=== PATIENT | female | born 1990 | race Caucasian/White ===

== ENCOUNTER 2018-09-20 01:18 | Inpatient (IN) | payer SELFPAY ==
[~2018-09-20] VITALS: Ht 149.9 cm; Wt 63.5 kg
[2018-09-20 02:29] LABS: BASOPHILS % 0.2 % (0.0-2.0); EOSINOPHILS % 0.6 % (0.0-5.0); HEMATOCRIT. 35.7 % (36.0-48.0); HEMOGLOBIN. 11.8 g/dL (12.0-16.0); LYMPHOCYTES % 9.7 % (20.0-50.0); MEAN CORPUSCULAR VOLUME 84.7 fL (81.0-99.0); MEAN PLATELET VOLUME 8.7 fl (7.4-10.4); MONOCYTES % 5.6 % (2.0-8.0); NEUTROPHILS % 83.9 % (40.0-76.0); PLATELET 361 x1000/uL (130-400); RED BLOOD CELL COUNT 4.21 mill/uL (4.2-5.4); RED CELL DISTRIBUTION WIDTH 14.1 % (11.6-14.6)
[2018-09-20] MEDS ORDERED: METOCLOPRAMIDE HCL 10MG/2ML VIAL IV ONE (02:30)
[2018-09-20] MEDS ORDERED: ACETAMINOPHEN 325MG TABLET PO PRN (02:30)
[2018-09-20 02:34] LABS: CHLORIDE 103 mEq/L (98-107)
[2018-09-20 02:35] LABS: CLARITY URINE CLOUDY (CLEAR); COLOR URINE ORANGE (YELLOW); KETONES URINE NEGATIVE (NEGATIVE); LEUKOCYTE ESTERASE URINE 1+ (NEGATIVE); NITRITE URINE NEGATIVE (NEGATIVE); OCCULT BLOOD URINE 3+ (NEGATIVE); PH URINE 6.5 (4.5-8.0); PROTEIN URINE TRACE (NEGATIVE); SPECIFIC GRAVITY URINE 1.025 (1.005-1.030)
[2018-09-20 02:52] LABS: UCG SCREEN POSITIVE
[2018-09-20 02:59] LABS: B-HCG QUANTITATIVE 1123 mIU/mL (<3)
[2018-09-20] MEDS ORDERED: CEFAZOLIN 1000MG PREMIX 50 ML IV ONE (04:15)
[2018-09-20] MEDS ORDERED: SODIUM CHLORIDE 0.9% 1,000 ML IV ONE (05:15)
[2018-09-20] MEDS ORDERED: LIDOCAINE HCL/PF 1% 10 MG/ML 5ML VIAL ONE (06:16)
[2018-09-20] MEDS ORDERED: FENTANYL CITRATE/PF 50MCG/ML 2ML VIAL ONE ×3 (06:16→07:04)
[2018-09-20] MEDS ORDERED: ROCURONIUM BROMIDE 10MG/ML VIAL 5ML IV ONE (06:16)
[2018-09-20] MEDS ORDERED: SUCCINYLCHOLINE CHLORIDE 200MG/10ML IV ONE (06:16)
[2018-09-20] MEDS ORDERED: SODIUM CHLORIDE 0.9% 10ML VIAL ONE (06:16)
[2018-09-20] MEDS ORDERED: NEOSTIGMINE METHYLSULFATE 1MG/ML 10 ML VIAL ONE (06:16)
[2018-09-20] MEDS ORDERED: GLYCOPYRROLATE 0.2 MG/ML 2ML VIAL ONE (06:16)
[2018-09-20] MEDS ORDERED: PROPOFOL 200MG/20ML VIAL IV ONE (06:16)
[2018-09-20] MEDS ORDERED: MIDAZOLAM HCL 2 MG/2 ML VIAL ONE (06:16)
[2018-09-20] MEDS ORDERED: DEXAMETHASONE 4MG/ML 1ML VIAL ONE (06:17)
[2018-09-20] MEDS ORDERED: ONDANSETRON HCL 4MG/2ML INJ ONE (06:17)
[2018-09-20] MEDS ORDERED: METOCLOPRAMIDE HCL 10MG/2ML VIAL ONE (06:17)
[2018-09-20] MEDS ORDERED: VASOPRESSIN 20 UNIT/ML 1ML ONE (06:35)
[2018-09-20] MEDS ORDERED: SKIN ADHESIVE 0.7 GM EA TOP ONE (06:35)
[2018-09-20] MEDS ORDERED: NORMAL SALINE 0.9% 10 ML SYR ONE (06:35)
[2018-09-20] MEDS: SODIUM CHLORIDE 0.9% 1,000 ML IV ONE (07:17)
[2018-09-20] MEDS ORDERED: MORPHINE SULFATE 2 MG/ML CPJ (NOT FOR IM USE) IV PRN (07:30)
[2018-09-20] MEDS ORDERED: HYDROMORPHONE HCL/PF 2MG/ML CPJ IV PRN (07:30)
[2018-09-20] MEDS ORDERED: MEPERIDINE HCL/PF 25MG/ML CPJ IV PRN ×2 (07:30)
[2018-09-20] MEDS ORDERED: ONDANSETRON HCL 4MG/2ML INJ IV PRN ×2 (07:30)
[2018-09-20] MEDS ORDERED: DEXT 5%/0.45% NACL KCL 20MEQ/L 1,000 ML IV SCH (07:30)
[2018-09-20 11:43] VITALS: BP 111/72
[2018-09-20 12:00] VITALS: BP 119/79
[2018-09-20] MEDS ORDERED: HYDROCODONE/ACETAMINOPHEN 5/325MG TABLET PO PRN (16:00)
[2018-09-20] MEDS ORDERED: LACTATED RINGERS 1,000 ML IV NR (16:00)
[2018-09-20 16:10] VITALS: BP 139/100
[2018-09-20] MEDS: HYDROCODONE/ACETAMINOPHEN 10/325MG TABLET PO PRN ×2 (18:46→22:44)
[2018-09-20 20:00] VITALS: BP 109/71
[2018-09-21] VITALS: BP 108/63
[2018-09-21 04:00] VITALS: BP 98/61
[2018-09-21] MEDS: HYDROCODONE/ACETAMINOPHEN 10/325MG TABLET PO PRN ×2 (04:27→09:03)
[2018-09-21 07:42] LABS: BASOPHILS % 0.2 % (0.0-2.0); EOSINOPHILS % 0.1 % (0.0-5.0); HEMATOCRIT. 26.1 % (36.0-48.0); HEMOGLOBIN. 8.8 g/dL (12.0-16.0); LYMPHOCYTES % 17.7 % (20.0-50.0); MEAN CORPUSCULAR HEMOGLOBIN 28.3 pg (28.0-32.0); MEAN CORPUSCULAR VOLUME 83.8 fL (81.0-99.0); MEAN PLATELET VOLUME 8.7 fl (7.4-10.4); MONOCYTES % 8.5 % (2.0-8.0); NEUTROPHILS % 73.5 % (40.0-76.0); PLATELET 288 x1000/uL (130-400); RED BLOOD CELL COUNT 3.11 mill/uL (4.2-5.4); RED CELL DISTRIBUTION WIDTH 14.1 % (11.6-14.6)
[2018-09-21 08:00] VITALS: BP 95/59
[2018-09-21] MEDS: SODIUM CHLORIDE 0.9% 1,000 ML IV ONE (09:01)
[2018-09-21 12:00] VITALS: BP 108/45
[2018-09-21] MEDS: IBUPROFEN 800MG TABLET PO PRN (13:30)
[2018-09-21 16:00] VITALS: BP 104/65
[2018-09-21 20:00] VITALS: BP 121/76
[2018-09-22] VITALS: BP 104/70
[2018-09-22] MEDS: IBUPROFEN 800MG TABLET PO PRN ×2 (03:01→11:04)
[2018-09-22 04:00] VITALS: BP 108/75
[2018-09-22 06:14] LABS: CHLAMYDIA TRACHOMATIS NAA Negative (Negative); NEISSERIA GONORRHOEAE NAA Negative (Negative)
[2018-09-22 08:00] VITALS: BP 103/65
[2018-09-22 12:00] VITALS: BP 97/62
[2018-09-22 16:00] VITALS: BP 89/49
[2018-09-22 20:00] VITALS: BP 123/59
[2018-09-23] VITALS: BP 121/65
[2018-09-23] MEDS: IBUPROFEN 800MG TABLET PO PRN ×2 (02:29→14:30)
[2018-09-23 04:00] VITALS: BP 115/62
[2018-09-23 08:00] VITALS: BP 105/65
[2018-09-23 12:00] VITALS: BP 107/71
[2018-09-23 12:29] VITALS: BP 107/71
[2018-09-23 14:30] VITALS: BP 107/71
== END 2018-09-23 15:42 | disposition home or self-care (01) | DRG 545 ==
LOC: ER 01:18 → 6EST 04:34 → ENRESERV 05:27 → SUPCPDRO 06:18 → 6EST 11:45
PROVIDERS: ADMIT Obstetrics & Gynecology; ATTEND Obstetrics & Gynecology
PROC: 10T20ZZ Resection of Products of Conception, Ectopic, Open Approach (ICD-10-PCS; principal; 2018-09-20)
PROC: 0UB60ZZ Excision of Left Fallopian Tube, Open Approach (ICD-10-PCS; 2018-09-20)
DX: O00.102 Left tubal pregnancy without intrauterine pregnancy (principal); K66.1 Hemoperitoneum; N83.8 Other noninflammatory disorders of ovary, fallopian tube and broad ligament; D72.829 Elevated white blood cell count, unspecified
CPT/HCPCS: 36415; 76801; 81025; 84702; 86850; 86900; 87210; 87491; 87591; 88302; 96365; 96375; 99285; J0330; J0690; J1100; J2175; J2250; J2270; J2405; J2704; J2710; J2765; J3010; J3490; J7030